=== PATIENT | female | born 1970 | race Caucasian/White ===

== ENCOUNTER 2018-09-27 17:08 | Outpatient (REF) | payer BC, SELFPAY ==
--- NOTE | 2018-09-27 13:00 | PAPFT_PTH ---
PATIENT: Delicia Umanzor LOC: [facility] U#:[id number] AGE/SX: 47/F ROOM: RE09/27/[address]: uJan Marquez : 1970 BED: DIS: 09/27/2018 SPEC #: [id number] RECD: 09/28/18 12:44 STATUS: NEHA REReta #: [id number] KIERAN: 09/27/18 13:[address]: Juan Marquez DEPT: [facility] Cytology RECD BY: Carmen Mancera Tissues: 1 - CX/ENDOCX FOR PAP SMEARS Procedures: PAP THIN PREP/UVM Screening Comments: [id number] (CHLAMYDIA/GC)
[2018-10-01 14:38] LABS: Chlamydia Result Negative; GC Result Negative; Specimen Description SEE COMMENTS
== END 2018-09-27 17:28 ==
LOC: LBN 17:08
PROVIDERS: Visit Provider Naturopath
DX: N76.0 Acute vaginitis (principal); Z36.85 Encounter for antenatal screening for Streptococcus B; Z12.4 Encounter for screening for malignant neoplasm of cervix
CPT/HCPCS: 87491; 87591; 88142; 87081

== ENCOUNTER 2019-08-26 10:42 | Outpatient (REF) | payer BC, SELFPAY ==
--- NOTE | 2019-08-26 09:20 | PAPFT_PTH ---
PATIENT: Delicia Umanzor LOC: [facility] U#:[id number] AGE/SX: 48/F ROOM: RE08/26/[address]: Priya Acosta NP : 1970 BED: DIS: 08/26/2019 SPEC #: [id number] RECD: 08/26/19 12:48 STATUS: NEHA JASSO #: [id number] KIERAN: 08/26/19 09:[address]: Priya Acosta NP DEPT: [facility] Cytology RECD BY: Nini Zavala Tissues: 1 - CX/ENDOCX FOR PAP SMEARS Procedures: PAP THIN PREP/UVM Screening HPV DNA PROBE Comments: [id number]
== END 2019-08-26 11:02 ==
LOC: LBN 10:42
PROVIDERS: Visit Provider Nurse Practitioner Women's Health
DX: Z12.4 Encounter for screening for malignant neoplasm of cervix (principal); Z11.51 Encounter for screening for human papillomavirus (HPV)
CPT/HCPCS: 88142; 87624

== ENCOUNTER 2023-12-18 12:59 | Outpatient (REF) | payer OTHER, SELFPAY ==
[2023-12-18 16:58] LABS: FREE T4 0.56 ng/dL (0.76-1.46); TSH 1.54 uIU/Ml (0.36-3.74)
[2023-12-18 22:38] LABS: T3, Total 171 ng/dL (97-169)
[2023-12-18 23:19] LABS: FSH 29.1 mIU/mL (See Note)
== END 2023-12-18 13:00 | disposition home or self-care (01) ==
LOC: NCHCN 12:59
PROVIDERS: PCP Family Medicine; Visit Provider Family Medicine
DX: E03.9 Hypothyroidism, unspecified (principal); Z78.0 Asymptomatic menopausal state
CPT/HCPCS: 83001; 84439; 84443; 84480

== ENCOUNTER 2024-04-29 16:34 | Outpatient (REF) | payer OTHER, SELFPAY ==
[2024-04-29 20:25] LABS: FREE T4 1.36 ng/dL (0.76-1.46); TSH 0.39 uIU/mL (0.36-3.74)
[2024-04-30 17:53] LABS: T3,Free 5.9 pg/mL (2.8-5.3)
== END 2024-04-29 16:35 | disposition home or self-care (01) ==
LOC: NCHCN 16:34
PROVIDERS: PCP Family Medicine; Visit Provider Family Medicine
DX: E03.9 Hypothyroidism, unspecified (principal); Z78.0 Asymptomatic menopausal state
CPT/HCPCS: 84439; 84443; 84481

== ENCOUNTER 2024-05-02 15:10 | Outpatient (REF) | payer OTHER, SELFPAY ==
--- NOTE | 2024-05-02 10:30 | PAPFT_PTH ---
PATIENT: Delicia Umanzor LOC: [facility] U#:[id number] AGE/SX: 53/F ROOM: RE05/02/[address]: Linda Comer : 1970 BED: DIS: 05/02/2024 SPEC #: [id number] RECD: 05/02/24 18:27 STATUS: NEHA REReta #: [id number] KIERAN: 05/02/24 10:[address]: Linda Comer DEPT: [facility] Cytology RECD BY: Nini Zavala Tissues: 1 - CX/ENDOCX FOR PAP SMEARS Procedures: PAP THIN PREP/UVM Screening HPV DNA PROBE Comments: [id number] (HPV 16 & 18/45)
== END 2024-05-02 15:11 | disposition home or self-care (01) ==
LOC: NCHCN 15:10
PROVIDERS: PCP Family Medicine; Visit Provider Family Medicine
DX: Z12.4 Encounter for screening for malignant neoplasm of cervix (principal)
CPT/HCPCS: 88142; 87624

== ENCOUNTER 2024-07-04 09:02 | Outpatient (REF) | payer OTHER, SELFPAY ==
[2024-07-04 15:20] LABS: ALT 29 U/L (14-59); AST 23 U/L (15-37); Albumin 3.7 g/dL (3.4-5.0); Alkaline Phosphatase 66 U/L (46-116); Bilirubin, Direct 0.2 mg/dL (0.0-0.2); Bilirubin, Total 0.65 mg/dL (0.2-1.0); Total Protein 6.7 g/dL (6.4-8.2)
== END 2024-07-04 09:03 | disposition home or self-care (01) ==
LOC: NCHCN 09:02
PROVIDERS: PCP Family Medicine; Visit Provider Family Medicine
DX: N95.1 Menopausal and female climacteric states (principal)
CPT/HCPCS: 80076

== ENCOUNTER 2025-05-08 09:56 | Outpatient (REF) | payer OTHER, SELFPAY ==
--- NOTE | 2025-05-08 09:15 | PAPFT_PTH ---
PATIENT: Delicia Umanzor LOC: [facility]#:[id number] AGE/SX: 54/F ROOM: RE05/08/[address]: Linda Comer : 1970 BED: DIS: 05/08/2025 SPEC #: [id number] RECD: 05/08/25 18:03 STATUS: NEHA JASSO #: [id number] KIERAN: 05/08/25 09:[address]: Linda Comer DEPT: [facility] Cytology RECD BY: Nini Zavala Tissues: 1 - CX/ENDOCX FOR PAP SMEARS Procedures: PAP THIN PREP/UVM Screening HPV DNA PROBE Comments: [id number] (HPV 16 & 18/45)
[2025-05-08 16:20] LABS: Anion Gap 8.9 mmol/L (3-11); BUN 12 mg/dL (7-18); CO2 28.1 mmol/L (21.0-32.0); Calcium 9.0 mg/dL (8.5-10.1); Chloride 102 mmol/L (98-107); Cholesterol 161 mg/dL (<200); Glucose 91 mg/dL (74-106); HDL Cholesterol 99 mg/dL (>or=50); Potassium 4.3 mmol/L (3.5-5.1); Sodium 139 mmol/L (136-145); TSH 1.63 uIU/mL (0.36-3.74)
== END 2025-05-08 09:57 | disposition home or self-care (01) ==
LOC: NCHCN 09:56
PROVIDERS: PCP Family Medicine; Visit Provider Family Medicine
DX: E03.9 Hypothyroidism, unspecified (principal); Z00.00 Encounter for general adult medical examination without abnormal findings; Z12.4 Encounter for screening for malignant neoplasm of cervix
CPT/HCPCS: 80048; 80061; 88142; 84443; 87624

== ENCOUNTER 2025-06-25 08:19 | Day surgery (SDC) | payer OTHER, SELFPAY ==
[2025-06-25 08:40] VITALS: BP 97/69; PULSE 54; RESP 16; TEMP 36.3; O2SAT 99
[2025-06-25] MEDS: Lactated Ringers 1,000 ML 125 ML IV (09:15)
[2025-06-25 09:20] VITALS: BMI 22.4
--- NOTE | 2025-06-25 09:20 | W.ANESPRE ---
General Info Date of Service Date Performed: 06/25/25 Height: 5 ft 2.25 in Weight: 56.1 kg Body Mass Index (BMI): 22.4 Surgical Procedure: Operation Date: 06/25/25 10:10 Proposed Procedure Side Surgeon p Dilation & Curettage with Hysteroscopy Dayana Thomas MD Actual Procedure Side Surgeon p Dilation & Curettage with Hysteroscopy Not Applicable Dayana Thomas MD Pre-Op Diagnosis Post-Op Diagnosis Abnormal glandular Papanicolaou smear of cervix Abnormal glandular Papanicolaou smear of cervix Meds Allergies and Home Medications Allergies Allergy/AdvReac Type Severity Reaction Status Date / Time No Known Allergies Allergy Verified 06/25/25 09:04 Home Medication ?Medication ?Instructions ?Recorded valacyclovir 500 mg tablet 500 mg PO BID 08/26/19 (Valtrex) estradiol 0.01% (0.1 mg/gram) 1 g vaginal QWEEK 05/30/25 vaginal cream levothyroxine 100 mcg capsule 100 mcg PO DAILY 05/30/25 valacyclovir 500 mg tablet 1,000 mg PO DAILY 05/30/25 Current Visit Medications: Current Medications Generic Name Dose Route Start Last Admin Trade Name Freq PRN Reason Stop Dose Admin Ringer's Solution 1,000 mls @ 125 mls/hr 06/25/25 06:00 IV 06/25/25 23:59 INFUSION DAMEON Sodium Chloride 0 ml 06/25/25 06:00 Normal Saline Flush 10 Ml Syr IV 06/25/25 23:59 PRN PRN Sodium Chloride 0 ml 06/25/25 06:00 Normal Saline 10 Ml Vial IJ 06/25/25 23:59 DIRECTED PRN Sterile Water 0 ml 06/25/25 06:00 Water,Injection,Sterile 10 Ml Vial IJ 06/25/25 23:59 DIRECTED PRN PFSH Active Problems Active Problems: Problem Status Onset Code Abnormal glandular Papanicolaou smear of cervix Acute R87.619 Heart murmur Acute R01.1 Depressive disorder Chronic F32.A Herpes simplex Acute B00.9 Diverticulosis Acute K57.90 Vaginal dryness Acute N89.8 OSCAR (generalized anxiety disorder) Acute F41.1 Hot flashes due to menopause Acute N95.1 Hypothyroid Chronic E03.9 Medical History Medical History (Updated 06/25/25 @ 09:01 by Petrona Juárez) Family history of uterine cancer mother Cervical atypia, mild Pt reports h/o laser tx to cervix Abnormal Pap smear of cervix 2024: atypical glandular cells, HPV neg 2023: NIL/HPV 16+ 2020: NIL/HPV neg 2019: NIL Herpes genitalia Medical History Comments:: 3x+ week thc edible for sleep Surgical History Surgical History (Updated 06/25/25 @ 09:01 by Petrona Juárez) Hx of colonoscopy Bogard teeth removed Tobacco Smoking/Tobacco Use Status: Never Alcohol Alcohol Intake: current Alcohol intake frequency: a few times a month Alcohol type: hard liquor Substance Use Substance use: Occasionally Substance use type: marijuana Details: edibles for sleep 3x+ week Prental History History 1 Para 1 Hx # Term Pregnancies Multiple births Hx # Pregnancies Ectopic pregnancies AB induced Hx Number of Living Children AB spontaneous Past Pregnancies Del. Date GA/Weeks # Preg Succ Route Wgt Sex Labor Lgth Anesthesia Location Prov Complic 04/19/03 Yes vaginal 3486.991 g Female [facility] Delivery Date: 04/19/03 Last Updated by: GET Lay Vital Signs and Lab Results Vital Signs Most Recent Vital Signs in EMR: Most Recent Vital Signs Temp Pulse Resp BP Pulse Ox 36.3 C L 54 L 16 97/69 L 99 06/25/25 08:40 06/25/25 08:40 06/25/25 08:40 06/25/25 08:40 06/25/25 08:40 Anesthesia Assessment and Plan Anesthesia History Personal History: No History of Anesthesia Complications Family History: No Family History of Anesthesia Complications Exercise Tolerance Exercise Tolerance: Metabolic Equivalents>4 Pertinent Negatives Pertinent Negatives: No Symptoms of GERD, No Major Pulmonary Symptoms or Complaints and No History of CVA/TIA Cardiac & Pulmonary Exam Cardiac Exam: Heart Murmur Present (Per patient since childhood, only shows up in records in 2021. Has had a stress test with 13 Mets in 2019 and an EKG. Functional status is unchanged, no symptoms. Can proceed at this time. ) Pulmonary Exam: Clear Bilateral Breath Sounds Implantable Cardiac Device Does patient have a Pacemaker or an ICD?: No Airway Exam Known Difficult Airway: No Mallampati Class: 3 Mouth Opening: Normal (> 3cm) Thyromental Distance: Greater than 3 cm Neck Range of Motion: Full ROM Neck Circumference: Normal Teeth Condition: Normal Dentition ASA Classification ASA Score: ASA 2 Emergency Case?: No NPO Status NPO Status: NPO Clears >2 hours, Solids >8 hours Status Status: Not Relevant due to Medical History Anesthesia Plan Resuscitation Status: Full Code Anesthesia Technique: General Anesthesia Airway Planned: Natural Airway Monitors Used: Standard Monitors
--- NOTE | 2025-06-25 10:12 | ENDOMET_PTH ---
PATIENT: Delicia Umanzor LOC: [facility] U#:[id number] AGE/SX: 54/F ROOM: RE06/25/[address]: Dayana Thomas MD : 1970 BED: DIS: 06/25/2025 SPEC #: [id number] RECD: 06/25/25 12:58 STATUS: NEHA REReta #: [id number] KIERAN: 06/25/25 10:[address]: Dayana Thomas DEPT: Surgical Specimen RECD BY: Nini Zavala ENTERED: 06/25/25 12:59 SP TYPE: Endomet OTHR DR: Linda Comer Tissues: 1 - ENDOMETRIUM BX/VALERIA Procedures: GROSS AND MICRO LEVEL 4 Comments: [id number]
[2025-06-25 10:22] VITALS: BP 98/68; PULSE 56; RESP 16; TEMP 36.4; O2SAT 97
--- NOTE | 2025-06-25 10:50 | ROE_ITS ---
Operative Note Operative Note PRE-OP DIAGNOSIS: Atypical glandular cells on pap smear. Failed office endometrial biopsy. POST-OP DIAGNOSIS: same PROCEDURE: Hysteroscopy dilation and curettage SURGEON: Dayana Thomas Refer to Anesthesia Record ESTIMATED BLOOD LOSS: 10 COMPLICATIONS: None Patient was transported to: same day Patient's condition: stable Indications: Pt is a 54yo who comes today as a referral from her PCP for a recent abnl pap. It showed atypical glandular cells though was HPV neg. Attempted endometrial biopsy was unsuccessful due to a stenotic internal cervical os. pt opted for further surgical evaluation. Findings: Normal appearing external genitalia, vagina and cervix. Endometrial cavity without any obvious structural abnormality. Both ostia clearly visualized. Procedure Description: After informed consent was signed the patient was taken to the operating room and given General room air anesthesia. SCDs were placed on her legs. She was prepped and draped in the dorsal lithotomy position in the [facility]. A time out was performed. Her bladder was drained of urine if not done immediately prior to entrance to the OR. Exam under anesthesia revealed normal external genitalia, vagina normal for age and a normal sized uterus. A speculum was placed into the vagina to reveal the cervix. The anterior lip of the cervix was grasped with a single tooth tenaculum. The cervix was dilated. The hysteroscope was assembled and turned on. It was inserted into the uterine cavity with minimal resistance at the internal os. Both ostia were clearly visualized. There were no clear structural abnormalities. The hysteroscopy was removed from the endometrium and a sharp curettage was performed. The tenaculum was removed from the cervix with good hemostasis. The speculum was removed from the vagina. The patient was placed back into the supine position. She was moved to the stretcher and taken to the recovery room in stable condition. Date of Procedure: 06/25/25
[2025-06-25 10:55] VITALS: BP 99/60; PULSE 44; RESP 14; TEMP 36.3; O2SAT 100
--- NOTE | 2025-06-25 10:57 | PDOC.DSDIS_ITS ---
Date of service: 06/25/25 Discharge Plan Disposition Patient Disposition: Home Discharge Details Attending Provider: Dayana Thomas Primary Care Provider: Linda Comer Home Meds and New Rx's Prescriptions: No Action valacyclovir [Valtrex] 500 mg tablet 500 mg PO BID Patient Comments: pt states only taking 1000mg daily, increases dose as needed valacyclovir 500 mg tablet 1,000 mg PO DAILY estradiol 0.01 % (0.1 mg/gram) cream 1 g vaginal QWEEK levothyroxine 100 mcg capsule 100 mcg PO DAILY Discharge Instructions Stand Alone Forms: Anesthesia Discharge Inst., DSU Post SALES COMMUNICATIONS MANAGER Surg W/O Incision, Afshan Lorenzo (DSU), Portal Information Referrals: Dayana Thomas MD [ [facility] STAFF PHYSICIAN, Obstetrics] - 07/02/25 3:00 pm Activity:: Activity as Tolerated Diet:: As Tolerated Discharge Orders Discharge Orders: Discharge Order (Routine); Ordered 06/25/25 Ordered By: Dayana Thomas
--- NOTE | 2025-06-25 10:59 | W.ANESPOSTOP ---
Postoperative Evaluation Date, Time and Location Date Performed: 06/25/25 Time Performed: 11:00 Patient Location: Day Surgery Unit Vital Signs Most Recent Imported Vital Signs: Most Recent Vital Signs Temp Pulse Resp BP Pulse Ox 36.4 C L 56 L 16 98/68 L 97 06/25/25 10:22 06/25/25 10:22 06/25/25 10:22 06/25/25 10:22 06/25/25 10:22 Pain Score Most Recent Pain Score: Most Recent Pain Score Pain Level 0 06/25/25 10:22 Assessment Mental Status: Awake (Alert & Oriented to Patient Baseline) Airway and Respiratory Function: Patent airway with normal (patient baseline) respiratory exam Cardiovascular Function: Hemodynamically Stable Hydration Status: Adequately Hydrated Nausea & Vomiting: No Nausea or Vomiting Pain: Pt. Denies Any Pain Peripheral Nerve Block: Patient did not receive a nerve block
== END 2025-06-25 11:25 | disposition home or self-care (01) ==
PROVIDERS: PCP Family Medicine; Visit Provider Obstetrics & Gynecology
PROC: 0UDB8ZZ Extraction of Endometrium, Via Natural or Artificial Opening Endoscopic (ICD-10-PCS; CPT 58558; principal; 2025-06-25 10:00)
DX: R87.619 Unspecified abnormal cytological findings in specimens from cervix uteri (principal)
CPT/HCPCS: 58558; 88305; J2704; J3010